=== PATIENT | female | born 1970 | race Two or more races ===

== ENCOUNTER 2024-06-15 22:14 | Inpatient (IN) | payer MEDICAID, OTHER ==
[~2024-06-15] VITALS: Ht 154.9 cm; Wt 71.9 kg
[2024-06-15 23:16] LABS: Basophils # (auto) 0 10 ^3/uL (0-0.2); Basophils % (auto) 0.3 % (0.0-2.0); Eosinophils # (auto) 0.1 10 ^3/uL (0-0.8); Eosinophils % (auto) 0.9 % (0.0-7.0); Hematocrit 38.8 % (36.0-46.0); Hemoglobin 13.3 g/dL (12.2-16.2); Lymphocytes # (auto) 0.5 10 ^3/uL (0.4-5.4); Lymphocytes % (auto) 4.7 % (10.0-50.0); Mean Corpuscular Hemoglobin 30.1 pg (28.0-32.0); Mean Corpuscular Hgb Conc. 34.3 g/dL (32.0-36.0); Mean Corpuscular Volume 87.9 fL (80.0-100.0); Monocytes # (auto) 0.5 10 ^3/uL (0-1.3); Monocytes % (auto) 4.7 % (0.0-12.0); Neutrophils # (auto) 9.9 10 ^3/uL (1.6-8.6); Neutrophils % (auto) 89.4 % (37.0-80.0); Platelet Count (auto) 361 10^3/uL (140-450); Red Blood Cells 4.41 10^6/uL (4.0-5.20); Red Cell Distribution Width 14.8 % (11.8-14.3)
[2024-06-15 23:28] LABS: Alanine Aminotransferase 86 U/L (7-40); Albumin 4.2 g/dL (3.2-4.8); Alkaline Phosphatase 327 U/L (46-116); Anion Gap 6 (5-15); Aspartate Aminotransferase 81 U/L (13-40); Blood Urea Nitrogen 8 mg/dL (9-23); Calcium 9.3 mg/dL (8.7-10.4); Carbon Dioxide 26 mmol/L (20-30); Chloride 103 mmol/L (98-107); Glucose 196 mg/dL (74-106); Sodium 135 mmol/L (136-145)
[2024-06-15 23:29] LABS: Bilirubin, Total 4.2 mg/dL (0.2-1.0); Total Protein 7.3 g/dL (5.7-8.2)
[2024-06-15 23:36] LABS: Lipase 1247 U/L (12-53)
[2024-06-16 02:33] LABS: Urine Bacteria FEW /hpf (None Seen); Urine Blood Negative /uL (Negative); Urine Clarity Clear (Clear); Urine Color Dark-Yellow (Yellow); Urine Mucus FEW (None Seen); Urine Protein, UAD TRACE (Negative); Urine Specific Gravity 1.021 (1.001-1.035); Urine Urobilinogen 8 mg/dL (Negative); Urine WBC 1 /hpf (0 - 5)
[2024-06-16 02:51] VITALS: PULSE 75; RESP 16; O2SAT 96
[2024-06-16] MEDS: KETOROLAC TROMETH 30 MG/ML 1ML VIAL IM ONE (03:12)
[2024-06-16] MEDS: LACTATED RINGER'S 1,000 ML IV SCH (04:00)
[2024-06-16] MEDS ORDERED: MORPHINE SULFATE INJ 2 MG/ml SYRG IV PRN (04:00)
[2024-06-16] MEDS ORDERED: POTASSIUM CHL 20MEQ/100ML 100 ML IV SCH (04:30)
[2024-06-16 04:31] LABS: Amphetamine Screen, Urine Neg (NEGATIVE); Barbiturate Scree,Urine Neg (NEGATIVE); Benzodiazephine Screen, Urine Neg (NEGATIVE); Cannabinoid Screen, Urine Neg (NEGATIVE); Cocaine Screen, Urine Neg (NEGATIVE); Opiate Scree,Urine Neg (NEGATIVE); Phencyclidine Screen, Urine Neg (NEGATIVE)
[2024-06-16] MEDS ORDERED: ALBUTEROL SULF 2.5 MG/0.5ML(0.5%) NEB SOLN NEB PRN (06:00)
[2024-06-16 06:39] LABS: Basophils # (auto) 0 10 ^3/uL (0-0.2); Basophils % (auto) 0.2 % (0.0-2.0); Eosinophils # (auto) 0 10 ^3/uL (0-0.8); Eosinophils % (auto) 0.2 % (0.0-7.0); Hematocrit 35.7 % (36.0-46.0); Hemoglobin 12.6 g/dL (12.2-16.2); Lymphocytes # (auto) 0.8 10 ^3/uL (0.4-5.4); Lymphocytes % (auto) 7.1 % (10.0-50.0); Mean Corpuscular Hemoglobin 30.7 pg (28.0-32.0); Mean Corpuscular Hgb Conc. 35.2 g/dL (32.0-36.0); Mean Corpuscular Volume 87.3 fL (80.0-100.0); Monocytes # (auto) 0.6 10 ^3/uL (0-1.3); Monocytes % (auto) 5.5 % (0.0-12.0); Neutrophils # (auto) 10.1 10 ^3/uL (1.6-8.6); Platelet Count (auto) 369 10^3/uL (140-450); Red Blood Cells 4.09 10^6/uL (4.0-5.20); Red Cell Distribution Width 14.4 % (11.8-14.3); White Blood Cell 11.6 10^3/uL (4.4-10.8)
[2024-06-16 06:52] VITALS: BP 130/86; PULSE 75; RESP 16; TEMP 100.1; O2SAT 96
[2024-06-16 07:11] LABS: Alanine Aminotransferase 81 U/L (7-40); Albumin 4.1 g/dL (3.2-4.8); Alkaline Phosphatase 319 U/L (46-116); Anion Gap 8 (5-15); Aspartate Aminotransferase 70 U/L (13-40); BUN/Creatinine Ratio 13.2 (10.0-20.0); Bilirubin, Direct 3.5 mg/dL (<0.3); Bilirubin, Total 4.7 mg/dL (0.2-1.0); Blood Alcohol < 3.0 mg/dL (<10); Blood Urea Nitrogen 9 mg/dL (9-23); Calcium 9.4 mg/dL (8.7-10.4); Carbon Dioxide 27 mmol/L (20-30); Chloride 101 mmol/L (98-107); Glucose 214 mg/dL (74-106); HDL Cholesterol 37 mg/dL (40-59); LDL Cholesterol 86 mg/dL (< 100); Magnesium 1.5 mg/dL (1.6-2.6); Potassium 3.2 mmol/L (3.5-5.1); Sodium 136 mmol/L (136-145); Total Protein 7.1 g/dL (5.7-8.2); Triglycerides 106 mg/dL (< 150)
[2024-06-16 07:48] LABS: Cholesterol 155 mg/dL (< 200)
[2024-06-16] MEDS: POTASSIUM CHL 20 Meq TABLET PO ONE (08:18)
[2024-06-16] MEDS: PANTOPRAZOLE 40 MG/10 ML VIAL INJ IV ONE (08:18)
[2024-06-16] MEDS: ONDANSETRON HCL 4 MG/2 ML VIAL IV PRN (08:19)
[2024-06-16 08:39] VITALS: PULSE 75; RESP 16; O2SAT 96
[2024-06-16 08:48] VITALS: O2SAT 100
[2024-06-16] MEDS ORDERED: DEXTROSE (50%) 50ML SYRG IV PRN (09:00)
[2024-06-16] MEDS: POTASSIUM CHL 20MEQ/100ML 100 ML IV SCH (09:00)
[2024-06-16] MEDS ORDERED: HYDROcodone-ACET 5/325MG TAB PO ONE (09:15)
[2024-06-16 10:44] LABS: COVID19 ANTIGEN SOFIA FIA NEGATIVE (NEGATIVE)
[2024-06-16] MEDS: KETOROLAC TROMETH 30 MG/ML 1ML VIAL IV ONE (11:24)
[2024-06-16] MEDS: MAGNESIUM SULFATE 1GM/100ML 100 ML IV SCH (11:24)
[2024-06-16] MEDS: ACCU-CHEK COMFORT CURVE STRIP VI SCH (12:00)
[2024-06-16 12:10] LABS: INR 1.03 (0.9-1.15); Partial Thromboplastin Time 28.8 SEC (24.5-34.5); Prothrombin Time 10.9 sec (9.3-11.8)
[2024-06-16 12:32] LABS: Free T4 (Free Thyroxine) 1.22 ng/dL (0.89-1.76); T3 Total 1.02 ng/mL (0.60-1.81)
[2024-06-16] MEDS: MAGNESIUM SULFATE 1GM/100ML 100 ML IV ONE (13:12)
[2024-06-16] MEDS: InsuLIN REG 1unit/0.01ml Soln (100units/ml) SC SCH (13:16)
[2024-06-16] MEDS: ERGOCALCIFEROL 50,000 UNIT(1.25MG) CAP PO SCH (16:00)
[2024-06-16 19:53] VITALS: O2SAT 98
[2024-06-16] MEDS: KETOROLAC TROMETH 30 MG/ML 1ML VIAL IV PRN (20:34)
[2024-06-17] VITALS (10 sets, daily range): BP systolic 106–168; BP diastolic 56–77; PULSE 61–110; RESP 16–20; TEMP 97.2–100.2; O2SAT 93–98
[2024-06-17] MEDS ORDERED: LIDO5DIS21 TOP (01:01)
[2024-06-17] MEDS ORDERED: HYDR50TA32 PO (01:01)
[2024-06-17] MEDS ORDERED: SERT-206 PO (01:01)
[2024-06-17] MEDS ORDERED: BACL20TA PO (01:01)
[2024-06-17] MEDS ORDERED: LITH600C4 PO (01:01)
[2024-06-17 07:56] LABS: Basophils # (auto) 0 10 ^3/uL (0-0.2); Basophils % (auto) 0.6 % (0.0-2.0); Eosinophils # (auto) 0.2 10 ^3/uL (0-0.8); Eosinophils % (auto) 4.3 % (0.0-7.0); Hematocrit 35.5 % (36.0-46.0); Hemoglobin 12.1 g/dL (12.2-16.2); Mean Corpuscular Hemoglobin 29.9 pg (28.0-32.0); Mean Corpuscular Hgb Conc. 34.1 g/dL (32.0-36.0); Mean Corpuscular Volume 87.7 fL (80.0-100.0); Monocytes # (auto) 0.4 10 ^3/uL (0-1.3); Monocytes % (auto) 6.5 % (0.0-12.0); Neutrophils # (auto) 3.9 10 ^3/uL (1.6-8.6); Neutrophils % (auto) 70.6 % (37.0-80.0); Nucleated Red Blood Cells % 0.1 %; Platelet Count (auto) 390 10^3/uL (140-450); Red Blood Cells 4.05 10^6/uL (4.0-5.20); White Blood Cell 5.6 10^3/uL (4.4-10.8)
[2024-06-17 08:27] LABS: Anion Gap 1 (5-15); Carbon Dioxide 27 mmol/L (20-30); Potassium 4.4 mmol/L (3.5-5.1); Sodium 139 mmol/L (136-145)
[2024-06-17 08:28] LABS: Calcium 9.4 mg/dL (8.7-10.4)
[2024-06-17 08:33] LABS: BUN/Creatinine Ratio 16.2 (10.0-20.0); Blood Urea Nitrogen 11 mg/dL (9-23); Glucose 153 mg/dL (74-106); Lipase 138 U/L (12-53)
[2024-06-17 08:34] LABS: Magnesium 2.1 mg/dL (1.6-2.6)
[2024-06-17 08:37] LABS: Chloride 111 mmol/L (98-107)
[2024-06-17] MEDS: PANTOPRAZOLE 40 MG/10 ML VIAL INJ IV SCH (11:26)
[2024-06-17] MEDS: ACETAMINOPHEN 500 MG TAB PO ONE (11:28)
[2024-06-17] MEDS ORDERED: LITH300C3 PO (12:53)
[2024-06-17] MEDS ORDERED: HYDR50TA69 PO (12:54)
[2024-06-17] MEDS ORDERED: SERT50TA PO (12:54)
[2024-06-17] MEDS ORDERED: hydrOXYzine 25 MG TAB or CAP PO PRN (15:45)
[2024-06-17] MEDS: LITHIUM CARBONATE 300 MG TAB PO SCH (20:22)
[2024-06-18] VITALS (7 sets, daily range): BP systolic 117–126; BP diastolic 59–77; PULSE 61–97; RESP 17–20; TEMP 98.1–98.8; O2SAT 97–99
[2024-06-18] MEDS: ACETAMINOPHEN 500 MG TAB PO PRN (00:25)
[2024-06-18 08:55] LABS: Hepatitis B Surface Antigen Negative (Negative)
[2024-06-18 09:15] LABS: Hepatitis A Ab IgM Negative; Hepatitis B Core IgM Negative
[2024-06-18 09:16] LABS: Hepatitis C Antibody Negative (Negative)
[2024-06-18] MEDS: SERTRALINE HCL 50 MG TAB PO SCH (10:00)
[2024-06-18 16:21] LABS: Basophils # (auto) 0.1 10 ^3/uL (0-0.2); Basophils % (auto) 0.8 % (0.0-2.0); Eosinophils # (auto) 0.2 10 ^3/uL (0-0.8); Hemoglobin 13.6 g/dL (12.2-16.2); Monocytes # (auto) 0.4 10 ^3/uL (0-1.3); Neutrophils # (auto) 6.6 10 ^3/uL (1.6-8.6)
[2024-06-18 16:24] LABS: Eosinophils % (auto) 2.1 % (0.0-7.0); Hematocrit 39.3 % (36.0-46.0); Lymphocytes % (auto) 12.2 % (10.0-50.0); Mean Corpuscular Hemoglobin 30.7 pg (28.0-32.0); Mean Corpuscular Hgb Conc. 34.6 g/dL (32.0-36.0); Mean Corpuscular Volume 88.8 fL (80.0-100.0); Monocytes % (auto) 4.3 % (0.0-12.0); Neutrophils % (auto) 80.6 % (37.0-80.0); Platelet Count (auto) 553 10^3/uL (140-450); Red Blood Cells 4.42 10^6/uL (4.0-5.20); Red Cell Distribution Width 15.2 % (11.8-14.3); White Blood Cell 8.2 10^3/uL (4.4-10.8)
[2024-06-18 16:38] LABS: Alanine Aminotransferase 67 U/L (7-40); Albumin 4.8 g/dL (3.2-4.8); Alkaline Phosphatase 364 U/L (46-116); Anion Gap 4 (5-15); Aspartate Aminotransferase 43 U/L (13-40); BUN/Creatinine Ratio 11.1 (10.0-20.0); Blood Urea Nitrogen 8 mg/dL (9-23); Calcium 10.2 mg/dL (8.7-10.4); Carbon Dioxide 25 mmol/L (20-31); Chloride 104 mmol/L (98-107); Glucose 211 mg/dL (74-106); Potassium 3.9 mmol/L (3.5-5.1)
[2024-06-18 16:39] LABS: Bilirubin, Total 2.2 mg/dL (0.2-1.0); Total Protein 8.2 g/dL (5.7-8.2)
[2024-06-18 16:45] LABS: Lipase 1122 U/L (12-53)
[2024-06-18 16:49] LABS: Sodium 133 mmol/L (136-145)
== END 2024-06-18 22:40 | disposition left against medical advice (07) | DRG 282 ==
LOC: EDBD 22:14 → ER 22:14 → OVERFLOW 06-16 04:07 → WEST WING 06-16 23:57
PROVIDERS: ADMIT Internal Medicine; ATTEND Internal Medicine
DX: K85.90 Acute pancreatitis without necrosis or infection, unspecified (principal); R65.10 Systemic inflammatory response syndrome (SIRS) of non-infectious origin without acute organ dysfunction; E11.9 Type 2 diabetes mellitus without complications; E87.6 Hypokalemia; R74.8 Abnormal levels of other serum enzymes; F41.9 Anxiety disorder, unspecified; F32.A Depression, unspecified; J45.909 Unspecified asthma, uncomplicated; R74.01 Elevation of levels of liver transaminase levels; E83.42 Hypomagnesemia; E80.6 Other disorders of bilirubin metabolism; Z88.5 Allergy status to narcotic agent; Z88.0 Allergy status to penicillin; Z90.49 Acquired absence of other specified parts of digestive tract; Z59.00 Homelessness unspecified; Z87.891 Personal history of nicotine dependence; Z86.73 Personal history of transient ischemic attack (TIA), and cerebral infarction without residual deficits
CPT/HCPCS: 36415; 71045; 74176; 76705; 80048; 80053; 80061; 80074; 80307; 80320; 81001; 82248; 82306; 82607; 82962; 83036; 83690; 83735; 84439; 84443; 84480; 85025; 85610; 85730; 87040; 87426; G0378; J1815; J1885; J2405; J2470